=== PATIENT | male | born 1975 | race African-American/Black ===

== ENCOUNTER 2023-02-10 20:22 | Emergency (ER) | payer OTHER ==
[2023-02-10 20:28] VITALS: RESP 16; TEMP 98.2; BMI 22.8
[2023-02-10] MEDS ORDERED: SODIUM CHLORIDE 1,000 ML IV STA (20:49)
[2023-02-10 21:15] LABS: HEMATOCRIT 45.2 % (35.4-49); HEMOGLOBIN 15.5 G/dL (11.7-16.9); MCH 34.1 pg (25.7-33.7); MCHC 34.4 g/dl (32.0-35.9); MEAN CELL VOLUME 99.4 fl (80-96); MEAN PLT VOLUME 7.7 fl (7.5-11.1); PLATELET COUNT 173.9 10^3/uL (134-434); RBC 4.55 10^6/uL (4.00-5.60); RDW 13.5 % (11.9-15.9); WHITE BLOOD COUNT 4.4 10^3/uL (4.0-10.8)
[2023-02-10 21:30] LABS: ALBUMIN 4.1 g/dl (3.4-5.0); CALCIUM 8.4 mg/dl (8.5-10); TOT PROT 7.2 g/dl (6.4-8.2)
[2023-02-10 21:31] LABS: PLATELET ESTIMATE ADEQUATE
[2023-02-10] MEDS ORDERED: POTASSIUM CHLORIDE TABS 20 MEQ TABLET.ER (FP) PO ONE ×2 (21:42→21:48)
[2023-02-10 22:36] VITALS: BP 160/99; PULSE 84
== END 2023-02-10 22:39 | disposition home or self-care (01) ==
LOC: FER 20:22
PROC: 3E0337Z Introduction of Electrolytic and Water Balance Substance into Peripheral Vein, Percutaneous Approach (ICD-10-PCS; principal; 2023-02-10)
DX: J10.1 Influenza due to other identified influenza virus with other respiratory manifestations (principal); R05.1 Acute cough; M79.10 Myalgia, unspecified site; R53.83 Other fatigue; Z20.822 Contact with and (suspected) exposure to COVID-19
CPT/HCPCS: 0241U-QW; 36415; 71046-TC-FY; 80053; 85027; 99284-25